=== PATIENT | female | born 1935 | race Caucasian/White ===

== ENCOUNTER 2022-09-25 08:58 | Outpatient (CLI) | payer MEDICARE ==
[2022-09-25] MEDS ORDERED: Iopamidol 370 76% 100 ML VIAL ONE (14:30)
== END 2022-09-25 08:59 | disposition home or self-care (01) ==
LOC: CSHCT 08:58
PROVIDERS: ATTEND Internal Medicine
DX: R10.32 Left lower quadrant pain (principal); K86.2 Cyst of pancreas
CPT/HCPCS: 74177; 82565

== ENCOUNTER 2023-03-30 12:01 | Observation (INO) | payer MEDICARE ==
[2023-03-30 12:54] LABS: #Basophils 0.1 10x3/uL (0.0-0.2); #Eosinphils 0.1 10x3/uL (0.0-0.5); #Monocytes 0.8 10x3/uL (0.0-1.1); #Neutrophils 4.9 10x3/uL (1.5-8.4); %Basophils 0.7 % (0.0-2.0); %Eosinophils 1.3 % (0.0-6.0); %Lymphocytes 22.2 % (18.0-47.0); %Monocytes 10.6 % (0.0-10.0); %Neutrophils 64.8 % (40.0-75.0); Hemoglobin 13.6 g/dL (12.0-15.5); Mean Corpuscular HGB CONC 32.8 g/dL (32.0-36.0); Mean Corpuscular Hemoglobin 29.2 pg (27.0-33.0); Mean Corpuscular Volume 89.1 fl (81.6-98.3); Mean Platelet Volume 10.7 fl (7.4-10.4); Platelet Count 197 10x3/uL (150-450); RBC Distribution Width 13.2 % (11.5-14.5); Red Blood Cell (RBC) Count 4.66 10x6/uL (3.90-5.03); White Blood Cell (WBC) Count 7.5 10x3/uL (3.5-10.5)
[2023-03-30] MEDS ORDERED: hydrALAZINE 20 MG/ML VIAL ONE (12:55)
[2023-03-30] MEDS ORDERED: Acetaminophen 325 MG TAB ONE (12:56)
[2023-03-30 13:14] LABS: ALT (SGPT) 15 U/L (8-55); AST (SGOT) 12 U/L (5-34); Albumin 3.7 g/dL (3.4-4.8); Alkaline Phosphatase 62 U/L (40-110); Anion Gap 14 mmol/L (10-20); BUN (Urea Nitrogen) 11 mg/dL (9.8-20.1); Bilirubin, Total 0.4 mg/dL (0.2-1.2); Calc. Creatinine Clearance 0 mL/min (70-130); Calcium 8.8 mg/dL (7.8-10.44); Carbon Dioxide 25 mmol/L (23-31); Chloride 107 mmol/L (98-107); Estimated GFR 66; Globulin 2.4 g/dL (2.4-3.5); Glucose 107 mg/dL (83-110); Potassium 3.4 mmol/L (3.5-5.1); Protein, Total 6.1 g/dL (5.8-8.1); Sodium 143 mmol/L (136-145)
[2023-03-30 14:02] LABS: Bilirubin Neg (Negative); Blood, Urine Negative (Negative); Clarity Clear (Clear); Glucose, Urine (Dipstick) Normal (Negative); Ketone, Urine Negative (Negative); Leukocyte 25 (Negative); Nitrite Negative (Negative); Protein, Urine (Dipstick) 15 mg/dl (Neg-Trace); Urobilinogen Normal mg/dL (Less than 2)
[2023-03-30 14:12] LABS: CAUTI Indications for Culture Spinal Cord Injury; RBC/HPF 0-3 HPF (0-3); Squamous Epithelial 0-3 HPF (0-3); WBC/HPF 0-3 HPF (0-3)
[2023-03-30 14:14] LABS: Urine Culture Reflex No No
[2023-03-30] MEDS ORDERED: Ondansetron PF 4 MG/2 ML Vial IVP PRN (14:38)
[2023-03-30] MEDS ORDERED: Acetaminophen 325 MG TAB PO PRN (14:38)
[2023-03-30] MEDS ORDERED: Metoclopramide HCl 10 MG/2 ML VIAL ONE (14:44)
[2023-03-30 15:48] LABS: Troponin I Less than 0.010 ng/mL (< 0.028)
[2023-03-30] MEDS ORDERED: NIFEdipine XL 30 MG TAB PO SCH (19:00)
[2023-03-30] MEDS ORDERED: Potassium Chloride 20 MEQ TAB PO SCH (19:00)
[2023-03-30 19:04] LABS: Troponin I 0.054 ng/mL (< 0.028)
[2023-03-30 20:01] VITALS: BMI 22.8
[2023-03-30] MEDS ORDERED: Heparin 5,000 UNITS/ML VIAL ONE (20:26)
[2023-03-30] MEDS ORDERED: Potassium Chloride 20 MEQ TAB ONE (20:26)
[2023-03-30] MEDS ORDERED: NIFEdipine XL 60 MG TAB PO SCH (20:45)
[2023-03-30] MEDS: Heparin 5,000 UNITS/ML VIAL SC SCH (20:52)
[2023-03-31 02:34] LABS: #Basophils 0.1 10x3/uL (0.0-0.2); #Eosinphils 0.1 10x3/uL (0.0-0.5); #Neutrophils 7.9 10x3/uL (1.5-8.4); %Basophils 0.5 % (0.0-2.0); %Eosinophils 0.6 % (0.0-6.0); %Lymphocytes 15.3 % (18.0-47.0); %Monocytes 9.4 % (0.0-10.0); %Neutrophils 73.9 % (40.0-75.0); Mean Corpuscular HGB CONC 31.8 g/dL (32.0-36.0); Mean Corpuscular Hemoglobin 28.6 pg (27.0-33.0); Mean Platelet Volume 10.5 fl (7.4-10.4); Platelet Count 209 10x3/uL (150-450); RBC Distribution Width 13.3 % (11.5-14.5); Red Blood Cell (RBC) Count 4.89 10x6/uL (3.90-5.03); White Blood Cell (WBC) Count 10.7 10x3/uL (3.5-10.5)
[2023-03-31 02:57] LABS: Anion Gap 14 mmol/L (10-20); BUN (Urea Nitrogen) 11 mg/dL (9.8-20.1); Calc. Creatinine Clearance 41 mL/min (70-130); Calcium 9.1 mg/dL (7.8-10.44); Carbon Dioxide 22 mmol/L (23-31); Chloride 111 mmol/L (98-107); Estimated GFR 67; Glucose 129 mg/dL (83-110); Potassium 3.8 mmol/L (3.5-5.1); Sodium 143 mmol/L (136-145)
[2023-03-31] MEDS ORDERED: NIFEdipine XL 60 MG TAB PO SCH (09:00)
[2023-03-31] MEDS ORDERED: Heparin 5,000 UNITS/ML VIAL ONE (09:18)
[2023-03-31] MEDS: Heparin 5,000 UNITS/ML VIAL SC SCH (09:38)
[2023-03-31 12:43] VITALS: TEMP 98.4
[2023-03-31 12:56] VITALS: BP 141/70
== END 2023-03-31 13:42 | disposition home or self-care (01) ==
LOC: CSHERS 12:01 → CSHERHOLD 14:51
PROVIDERS: ADMIT Internal Medicine; ATTEND Internal Medicine
DX: I16.0 Hypertensive urgency (principal); I10 Essential (primary) hypertension; E03.9 Hypothyroidism, unspecified; E87.6 Hypokalemia; Z88.6 Allergy status to analgesic agent; Z88.8 Allergy status to other drugs, medicaments and biological substances; Z79.890 Hormone replacement therapy; Z79.899 Other long term (current) drug therapy; Z90.710 Acquired absence of both cervix and uterus; Z90.49 Acquired absence of other specified parts of digestive tract; Z90.89 Acquired absence of other organs
CPT/HCPCS: 70450; 80048; 80053; 81001; 84484 ×2; 85025 ×2; 93005; 94760; 96372 ×2; 97116; 97535; G0378 ×2; J0360; 36415; J1644; J2765

== ENCOUNTER 2023-04-24 17:58 | Inpatient (IN) | payer MEDICARE ==
[2023-04-24 19:47] LABS: #Basophils 0.1 10x3/uL (0.0-0.2); #Eosinphils 0.1 10x3/uL (0.0-0.5); #Monocytes 0.8 10x3/uL (0.0-1.1); #Neutrophils 3.6 10x3/uL (1.5-8.4); %Basophils 0.8 % (0.0-2.0); %Lymphocytes 27.5 % (18.0-47.0); %Monocytes 12.9 % (0.0-10.0); %Neutrophils 57.3 % (40.0-75.0); Hematocrit 38.4 % (34.9-44.5); Mean Corpuscular HGB CONC 33.9 g/dL (32.0-36.0); Mean Corpuscular Hemoglobin 29.1 pg (27.0-33.0); Mean Corpuscular Volume 86.1 fl (81.6-98.3); Mean Platelet Volume 10.8 fl (7.4-10.4); Platelet Count 223 10x3/uL (150-450); RBC Distribution Width 12.4 % (11.5-14.5); Red Blood Cell (RBC) Count 4.46 10x6/uL (3.90-5.03); White Blood Cell (WBC) Count 6.3 10x3/uL (3.5-10.5)
[2023-04-24 19:55] LABS: ALT (SGPT) 13 U/L (8-55); AST (SGOT) 14 U/L (5-34); Albumin 3.9 g/dL (3.4-4.8); Alkaline Phosphatase 63 U/L (40-110); Anion Gap 14 mmol/L (10-20); BUN (Urea Nitrogen) 14 mg/dL (9.8-20.1); Bilirubin, Total 0.3 mg/dL (0.2-1.2); Calc. Creatinine Clearance 0 mL/min (70-130); Calcium 9.2 mg/dL (7.8-10.44); Carbon Dioxide 27 mmol/L (23-31); Chloride 96 mmol/L (98-107); Estimated GFR 64; Globulin 2.2 g/dL (2.4-3.5); Glucose 104 mg/dL (83-110); Potassium 3.6 mmol/L (3.5-5.1); Protein, Total 6.1 g/dL (5.8-8.1); Sodium 133 mmol/L (136-145)
[2023-04-24 19:58] LABS: CRP (Inflammatory) Less than 0.50 mg/dL (= or < 0.5); Magnesium 1.9 mg/dL (1.6-2.6)
[2023-04-24 19:59] LABS: Troponin I Less than 0.010 ng/mL (< 0.028)
[2023-04-24] MEDS ORDERED: hydrALAZINE 20 MG/ML VIAL ONE ×2 (20:10→21:44)
[2023-04-24] MEDS ORDERED: Prochlorperazine 10 MG/2 ML VIAL ONE (21:08)
[2023-04-24] MEDS ORDERED: Ketorolac Tromethamine 30 MG/ML VIAL ONE (21:08)
[2023-04-24] MEDS ORDERED: diphenhydrAMINE 50 MG/ML VIAL ONE (21:08)
[2023-04-24] MEDS ORDERED: Calcium Carbonate 500 MG ChewTAB PO PRN (22:36)
[2023-04-24] MEDS ORDERED: Ondansetron PF 4 MG/2 ML Vial IVP PRN (22:36)
[2023-04-24] MEDS ORDERED: Senokot S 8.6-50 MG TAB PO PRN (22:36)
[2023-04-24] MEDS ORDERED: Zolpidem Tartrate 5 MG TAB PO PRN (22:36)
[2023-04-24 23:12] LABS: Troponin I Less than 0.010 ng/mL (< 0.028)
[2023-04-25] MEDS ORDERED: Artificial Tear Sol 15 ML BOT EA EYE PRN (00:53)
[2023-04-25] MEDS ORDERED: Potassium Chloride 20 MEQ TAB PO SCH ×2 (01:00→08:00)
[2023-04-25 01:13] VITALS: BMI 22.6
[2023-04-25 04:50] LABS: Anion Gap 13 mmol/L (10-20); BUN (Urea Nitrogen) 11 mg/dL (9.8-20.1); Calc. Creatinine Clearance 45 mL/min (70-130); Calcium 8.5 mg/dL (7.8-10.44); Carbon Dioxide 25 mmol/L (23-31); Chloride 99 mmol/L (98-107); Estimated GFR 78; Glucose 113 mg/dL (83-110); Potassium 3.4 mmol/L (3.5-5.1); Sodium 134 mmol/L (136-145)
[2023-04-25] MEDS: Levothyroxine Sodium 25 MCG TAB PO SCH (05:35)
[2023-04-25] MEDS: Carvedilol 3.125 MG TAB PO SCH ×2 (08:57→17:25)
[2023-04-25] MEDS: Losartan Potassium 50 MG TAB PO SCH ×2 (08:58→21:45)
[2023-04-25] MEDS ORDERED: Hydrochlorothiazide 25 MG TAB PO SCH (09:00)
[2023-04-25] MEDS: Cholecalciferol 1,000 UNITS (25 MCG) TAB PO SCH (09:01)
[2023-04-25] MEDS: Magnesium Oxide 400 MG TAB PO SCH (09:01)
[2023-04-25] MEDS ORDERED: Spironolactone 25 MG TAB PO SCH (10:00)
[2023-04-25] MEDS ORDERED: hydrALAZINE 25 MG TAB PO SCH ×2 (12:00→18:30)
[2023-04-25] MEDS: Acetaminophen 325 MG TAB PO PRN (21:44)
[2023-04-25] MEDS: hydrALAZINE 25 MG TAB PO SCH (21:46)
[2023-04-26 05:05] LABS: #Basophils 0.1 10x3/uL (0.0-0.2); #Eosinphils 0.1 10x3/uL (0.0-0.5); #Monocytes 0.8 10x3/uL (0.0-1.1); #Neutrophils 2.6 10x3/uL (1.5-8.4); %Basophils 0.9 % (0.0-2.0); %Eosinophils 2.5 % (0.0-6.0); %Lymphocytes 35.7 % (18.0-47.0); %Monocytes 13.6 % (0.0-10.0); %Neutrophils 46.9 % (40.0-75.0); Hematocrit 36.9 % (34.9-44.5); Hemoglobin 12.4 g/dL (12.0-15.5); Mean Corpuscular HGB CONC 33.6 g/dL (32.0-36.0); Mean Corpuscular Hemoglobin 29.2 pg (27.0-33.0); Mean Platelet Volume 11.3 fl (7.4-10.4); Platelet Count 207 10x3/uL (150-450); RBC Distribution Width 12.9 % (11.5-14.5); Red Blood Cell (RBC) Count 4.24 10x6/uL (3.90-5.03); White Blood Cell (WBC) Count 5.5 10x3/uL (3.5-10.5)
[2023-04-26 05:23] LABS: Anion Gap 13 mmol/L (10-20); BUN (Urea Nitrogen) 14 mg/dL (9.8-20.1); Calc. Creatinine Clearance 41 mL/min (70-130); Calcium 8.6 mg/dL (7.8-10.44); Carbon Dioxide 21 mmol/L (23-31); Chloride 99 mmol/L (98-107); Estimated GFR 70; Glucose 99 mg/dL (83-110); Potassium 4.1 mmol/L (3.5-5.1); Sodium 129 mmol/L (136-145)
[2023-04-26 05:32] LABS: Troponin I Less than 0.010 ng/mL (< 0.028)
[2023-04-26] MEDS: Levothyroxine Sodium 25 MCG TAB PO SCH (05:59)
[2023-04-26] MEDS: Magnesium Oxide 400 MG TAB PO SCH (08:35)
[2023-04-26] MEDS: Losartan Potassium 50 MG TAB PO SCH ×2 (08:35→22:40)
[2023-04-26] MEDS: Spironolactone 25 MG TAB PO SCH (08:35)
[2023-04-26] MEDS: hydrALAZINE 25 MG TAB PO SCH ×3 (08:35→22:40)
[2023-04-26] MEDS: Cholecalciferol 1,000 UNITS (25 MCG) TAB PO SCH (08:36)
[2023-04-26] MEDS: Oxybutynin 5 MG TAB PO SCH (08:36)
[2023-04-26] MEDS: Carvedilol 3.125 MG TAB PO SCH ×2 (08:36→13:28)
[2023-04-26] MEDS ORDERED: Hydrochlorothiazide 25 MG TAB PO SCH (09:00)
[2023-04-26] MEDS: Acetaminophen 325 MG TAB PO PRN (23:48)
[2023-04-27 04:35] LABS: #Eosinphils 0.1 10x3/uL (0.0-0.5); #Monocytes 0.8 10x3/uL (0.0-1.1); #Neutrophils 3.1 10x3/uL (1.5-8.4); %Basophils 0.5 % (0.0-2.0); %Eosinophils 1.5 % (0.0-6.0); %Lymphocytes 33.1 % (18.0-47.0); %Neutrophils 50.6 % (40.0-75.0); Hematocrit 37.4 % (34.9-44.5); Hemoglobin 12.3 g/dL (12.0-15.5); Mean Corpuscular HGB CONC 32.9 g/dL (32.0-36.0); Mean Corpuscular Hemoglobin 28.5 pg (27.0-33.0); Mean Corpuscular Volume 86.6 fl (81.6-98.3); Mean Platelet Volume 11.2 fl (7.4-10.4); Platelet Count 226 10x3/uL (150-450); RBC Distribution Width 12.7 % (11.5-14.5); Red Blood Cell (RBC) Count 4.32 10x6/uL (3.90-5.03)
[2023-04-27 04:42] LABS: Anion Gap 13 mmol/L (10-20); BUN (Urea Nitrogen) 16 mg/dL (9.8-20.1); Calc. Creatinine Clearance 40 mL/min (70-130); Calcium 8.8 mg/dL (7.8-10.44); Carbon Dioxide 24 mmol/L (23-31); Chloride 98 mmol/L (98-107); Estimated GFR 67; Glucose 102 mg/dL (83-110); Potassium 4.6 mmol/L (3.5-5.1); Sodium 130 mmol/L (136-145)
[2023-04-27] MEDS: Levothyroxine Sodium 25 MCG TAB PO SCH (06:09)
[2023-04-27] MEDS: Oxybutynin 5 MG TAB PO SCH (08:44)
[2023-04-27] MEDS: Carvedilol 3.125 MG TAB PO SCH (08:44)
[2023-04-27] MEDS: hydrALAZINE 25 MG TAB PO SCH (08:44)
[2023-04-27] MEDS: Losartan Potassium 50 MG TAB PO SCH (08:44)
[2023-04-27] MEDS: Cholecalciferol 1,000 UNITS (25 MCG) TAB PO SCH (08:44)
[2023-04-27] MEDS: Spironolactone 25 MG TAB PO SCH (08:44)
[2023-04-27] MEDS: Magnesium Oxide 400 MG TAB PO SCH (08:44)
[2023-04-27] MEDS ORDERED: Losartan Potassium 50 MG TAB PO SCH (12:00)
[2023-04-27 16:21] VITALS: BP 168/74; TEMP 98.1
[2023-04-27] MEDS ORDERED: Carvedilol 6.25 MG TAB PO SCH (17:00)
[2023-04-28] MEDS ORDERED: Losartan Potassium 50 MG TAB PO SCH (09:00)
== END 2023-04-27 16:20 | disposition home or self-care (01) | DRG 305 ==
LOC: CSHERS 17:58 → CSHERHOLD 22:23 → INTOOBSV 22:23 → CSHTELE 04-25 02:22 → OBSVTOIN 04-27 08:09
PROVIDERS: ADMIT Student in an Organized Health Care Education/Training Program; ATTEND Internal Medicine
DX: I16.0 Hypertensive urgency (principal); E87.1 Hypo-osmolality and hyponatremia; E03.9 Hypothyroidism, unspecified; E73.9 Lactose intolerance, unspecified; R07.89 Other chest pain; Z88.5 Allergy status to narcotic agent; Z88.8 Allergy status to other drugs, medicaments and biological substances; Z90.49 Acquired absence of other specified parts of digestive tract; Z79.899 Other long term (current) drug therapy; Z90.710 Acquired absence of both cervix and uterus; Z98.890 Other specified postprocedural states
CPT/HCPCS: 36415; 70450; 71045; 80048; 80053; 83735; 83880; 84443; 84484; 85025; 85379; 86140; 93005; 93010; 93306; 93970; 96361; 96374; 96375; 96376; J0360; J0780; J1200; J1650; J1885